=== PATIENT | male | born 2000 | race Two or more races ===

== ENCOUNTER 2024-11-01 20:04 | Emergency (ER) | payer SELFPAY ==
[~2024-11-01] VITALS: Ht 170.2 cm; Wt 112.7 kg
[2024-11-01 20:26] VITALS: TEMP 98.1
[2024-11-01] MEDS ORDERED: METHOCARBAMOL 500 MG TABLET PO ONE (21:30)
[2024-11-01] MEDS: KETOROLAC TROMETHAMINE 30 MG/ML VIAL IM ONE (21:43)
[2024-11-01] MEDS: LIDOCAINE 5% TRANSDERMAL PATCH TD ONE (21:44)
[2024-11-01] MEDS ORDERED: IBUP-1492 PO (22:33)
[2024-11-01] MEDS ORDERED: METH-812 PO (22:33)
[2024-11-01 22:59] VITALS: BP 119/63; PULSE 69; RESP 15; O2SAT 98
== END 2024-11-01 23:07 | disposition home or self-care (01) ==
LOC: EMS 20:04
DX: S06.0X0A Concussion without loss of consciousness, initial encounter (principal); S16.1XXA Strain of muscle, fascia and tendon at neck level, initial encounter; M54.50 Low back pain, unspecified; M54.6 Pain in thoracic spine; R51.9 Headache, unspecified; V43.52XA Car driver injured in collision with other type car in traffic accident, initial encounter; Y93.89 Activity, other specified; Y92.410 Unspecified street and highway as the place of occurrence of the external cause; Y99.8 Other external cause status
CPT/HCPCS: 99285; 70450; 72125; 96372; J1885